=== PATIENT | male | born 1980 | race Two or more races ===

== ENCOUNTER 2020-11-02 11:44 | Emergency (ER) | payer OTHER ==
[~2020-11-02] VITALS: Ht 170.2 cm; Wt 94.3 kg
[2020-11-02] MEDS ORDERED: CLONAZEPAM1 MG (11:54)
[2020-11-02] MEDS ORDERED: EFEXOR (11:54)
[2020-11-02] MEDS ORDERED: SEROQUEL200 MG (11:55)
[2020-11-02] MEDS ORDERED: EFFEXOR XR37.5 MG (11:56)
[2020-11-02] MEDS ORDERED: AMOX-CLAV 875-1 EAC1 PO (14:54)
== END 2020-11-02 15:08 | disposition home or self-care (01) ==
LOC: ER 11:44
DX: H66.42 Suppurative otitis media, unspecified, left ear (principal)